=== PATIENT | male | born 1980 | race African-American/Black ===

== ENCOUNTER 2016-11-07 17:30 | Emergency (ER) | payer OTHER ==
[~2016-11-07] VITALS: Ht 175.3 cm; Wt 76.2 kg
[~2016-11-07 17:30] MED LIST: (NONE) 12.5 MG-1 TAB PO; ANTI-GAS 8080 MG PO; FLEXERIL10 MG PO; HYDROMORPHONE HC2 MG PO; LEVSIN 0.1250.125 MG PO; MOTRIN 600 MG600 MG PO; PERCOCET 325 MG1 TA2 PO; PROTONIX 40MG T40 MG PO; SENOKOT S 50 MG1 TAB PO; TRAMADOL50 MG PO; ZOFRAN 4 MG TABL4 MG PO
[2016-11-07 17:39] VITALS: BP 122/84
[2016-11-07] MEDS ORDERED: HYDROCODON-ACE1 EAC2 PO (18:39)
[2016-11-07] MEDS ORDERED: IBUPROFEN600 M1 PO (18:39)
[2016-11-07 18:45] LABS: ABSOLUTE BASOPHIL COUNT 0 /CUMM (0.0-0.2); ABSOLUTE EOSINOPHIL COUNT 0.7 /CUMM (0.0-0.7); ABSOLUTE GRANULOCYTE CT 7.2 /CUMM (1.4-6.5); ABSOLUTE LYMPH COUNT 1.9 /CUMM (1.2-3.4); ABSOLUTE MONOCYTE COUNT 0.4 /CUMM (0.10-0.60); BASOPHIL % 0.3 % (0.0-2.0); EOSINOPHIL % 6.8 % (0-5); GRANULOCYTE % 70.3 % (42.2-75.2); HEMATOCRIT 40.1 % (42-52); MEAN CORPUSCULAR HGB 29.4 PG (27.0-31.0); MEAN CORPUSCULAR HGB CONC 33.6 G/DL (33.0-37.0); MEAN CORPUSCULAR VOLUME 87.6 FL (80.0-94.0); MEAN PLATELET VOLUME 8.9 FL (7.4-10.4); PLATELET COUNT 164 /CUMM (130-400); RBC DISTRIBUTION WIDTH 12.4 % (11.5-14.5); RED BLOOD CELL CT 4.58 /CUMM (4.70-6.10); WHITE BLOOD CELL COUNT 10.3 /CUMM (4.8-10.8)
--- NOTE | 2016-11-07 19:17 | ED THROAT/DENTAL COMPLAINT ---
History of Present Illness General Chief Complaint: Skin Rash/ Abcess Stated Complaint: ?LUMP TO NECK Source: patient Exam Limitations: no limitations Vital Signs & Intake/Output Vital Signs & Intake/Output Vital Signs Date Time Temp Pulse Resp B/P Pulse O2 O2 Flow FiO2 Ox Delivery Rate 11/07 1841 Room Air 11/07 1739 98.3 94 15 122/84 100 Room Air Allergies Coded Allergies: Penicillins (HIVES 05/07/16) metoclopramide (From REGLAN) (HIVES 05/07/16) Reconcile Medications Clindamycin HCl (Cleocin HCl) 300 MG CAPSULE 1 CAP PO TID lymphadenitis Hydrocodone/Acetaminophen (Hydrocodon-Acetaminophen 5-325) 5 MG-325 MG TABLET 1 TAB PO PRN PAIN/INFLAMMATION (Reported) Ibuprofen 600 MG TABLET 1 TAB PO PRN PAIN/INFLAMMATION (Reported) with food Triage Note: PT TO ED FOR R SIDED JAW SWELLING. STATES HE HAD JAW SURGERY APPROX 09/20/16 TO FIX A PLATE FROM A PREVIOUSLY BROKEN JAW. Triage Nurses Notes Reviewed? yes Onset: Abrupt Duration: hour(s):, constant, continues in ED Timing: recent history Injury Environment: home No Modifying Factors: none HPI: 36-year-old male comes into the emergency room with complaints of right-sided neck pain has been going on for the past few hours. Patient denies any fever chills. Patient reports he feels swelling to the right side of his neck and has some pain when he swallows. Patient does report that he has been feeling sick with some ear congestion and nasal congestion over the past week. Denies any other associated symptoms. Nothing seems to make the symptoms better or worse. (ARIELLA SKINNER) Past History Travel History Traveled to [place] past 21 day No Medical History Any Pertinent Medical History? see below for history Neurological: NONE EENT: NONE Cardiovascular: NONE Respiratory: NONE Gastrointestinal: NONE Hepatic: NONE Renal: NONE Musculoskeletal: NONE Psychiatric: NONE Endocrine: NONE History of MRSA: No History of VRE: No History of CDIFF: No Surgical History Surgical History: non-contributory Psychosocial History Who do you live with Patient/Self Services at Home None What is your primary language Kazakh Tobacco Use: Current Daily Use Daily Tobacco Use Amount/Type: => 5 Cigarettes daily ETOH Use: occasional use Illicit Drug Use: marijuana Family History Family History, If Any: No Known Family History. Hx Contributory? No (ARIELLA SKINNER) Review of Systems Review of Systems Constitutional: Reports: no symptoms. EENTM: Reports: see HPI. Respiratory: Reports: no symptoms. Cardiovascular: Reports: no symptoms. GI: Reports: no symptoms. Genitourinary: Reports: no symptoms. Musculoskeletal: Reports: no symptoms. Skin: Reports: no symptoms. Neurological/Psychological: Reports: no symptoms. Hematologic/Endocrine: Reports: no symptoms. Immunologic/Allergic: Reports: see HPI. All Other Systems: Reviewed and Negative (ARIELLA SKINNER) Physical Exam Physical Exam General Appearance: well developed/nourished, no apparent distress, alert, awake Head: atraumatic, normal appearance Eyes: Bilateral: normal appearance, EOMI. Ears: Bilateral: canal normal, Tympanic normal. Nose: normal inspection Mouth/Throat: pharyngeal erythema, no evidence of peritonsillar abscess, no exudates appreciated, Neck: full range of motion, lymphadenopathy (R) Cardiovascular/Respiratory: regular rate/rhythm, no respiratory distress Back: normal inspection Neurologic/Psych: awake, alert, oriented x 3, normal gait, normal mood/affect Skin: intact, normal color Core Measures ACS in differential dx? No Severe Sepsis Present: No Septic Shock Present: No (ARIELLA SKINNER) Progress Differential Diagnosis: aspirated tooth, carious tooth, epiglottitis, Ludwigs angina, meningitis, odontogenic abscess, katya-tonsillar abscess, pharyngeal for. body, stomatitis/gingivitis, strep pharyngitis, tooth fracture, lymphadenitis Plan of Care: Orders Procedure Date/time Status THROAT CULTURE W/QUICK STREP 11/08 1811 Active CBC WITHOUT DIFFERENTIAL 11/08 1811 Complete BASIC METABOLIC PANEL 11/08 1811 Complete Laboratory Tests 11/07/16 1836: Anion Gap 8, Estimated GFR > 60, BUN/Creatinine Ratio 14.0, Glucose 90, Calcium 9.7, CBC w Diff NO MAN DIFF REQ, RBC 4.58 L, MCV 87.6, MCH 29.4, RDW 12.4, MPV 8.9, Gran % 70.3, Lymphocytes % 18.2 L, Monocytes % 4.4, Eosinophils % 6.8 H, Basophils % 0.3, Absolute Granulocytes 7.2 H, Absolute Lymphocytes 1.9, Absolute Monocytes 0.4, Absolute Eosinophils 0.7, Absolute Basophils 0, PUBS MCHC 33.6 Comments: 11/07/2016 7:23:11 PM Patient's symptoms are likely more viral in nature. Due to the unilateral right swelling of right lymph node could be lymphadenitis. Patient covered with oral antibiotics. Patient has no signs of airway obstruction or stridor. No trismus. No signs of peritonsillar abscess. At this time patient does not require any type of CT scan imaging. Patient told to return if any concerns worsening symptoms. Patient is eager to leave. Patient reports she needs to leave soon and asking when everything is going to be back. (BETSY MARTINEZ,ARIELLA) Departure Departure Disposition: HOME OR SELF CARE Condition: Stable Clinical Impression Primary Impression: Lymphadenitis Secondary Impressions: Pharyngitis Referrals: ELISHA HOWARD APRN (PCP) Additional Instructions: Take clindamycin as prescribed. Follow-up with your primary care doctor if not better in 3-4 days. Return if any other concerns worsening symptoms. Please go over all results of today's visit with your primary care doctor. Contact your primary care doctor to let them know you were here in the emergency room. There may be nonspecific findings which may not be related to your visit today here in the emergency room but may require further evaluation and chronic monitoring by your primary care doctor. If you had a laceration today the chance of foreign body always remains. You should follow-up with your primary care doctor for recheck in 3-5 days for a wound check. If you had an x-ray done there is a chance that a fracture could have been missed on initial read and you should follow-up with your primary care doctor for repeat x-rays if symptoms persist. If your blood pressure was elevated here in the emergency room please have rechecked by her primary care doctor within the next 48 hours by your primary care doctor. If you were prescribed a narcotic here in the emergency room or any type of controlled substances you're not allowed to drive while taking this medication or operate any type of heavy machinery. Narcotics can make you feel lightheaded dizziness nausea and can cause constipation. You may need to cotton picker a stool softener. Thank you for choosing [facility] emergency room. Please return to the emergency room immediately if you have any other concerns worsening of symptoms. Departure Forms: Customer Survey General Discharge Information Prescriptions: Current Visit Scripts Clindamycin HCl (Cleocin HCl) 1 CAP PO TID #21 CAP (ARIELLA SKINNER) PA/PUMP ASSEMBLER Co-Sign Statement Statement: ED Attending supervision documentation- [] I saw and evaluated the patient. I have also reviewed all the pertinent lab results and diagnostic results. I agree with the findings and the plan of care as documented in the PA's/PUMP ASSEMBLER's documentation. x I have reviewed the ED Record and agree with the PA's/PUMP ASSEMBLER's documentation. [] Additions or exceptions (if any) to the PAs/PUMP ASSEMBLER's note and plan are summarized below: [] (YOUSUF BOURGEOIS,AIDEN)
[2016-11-07] MEDS ORDERED: CLEOCIN HCL300 M1 PO (19:19)
== END 2016-11-07 19:24 ==
LOC: ERH 17:30
PROVIDERS: Physician Assistant Medical
DX: I88.9 Nonspecific lymphadenitis, unspecified (principal); J02.9 Acute pharyngitis, unspecified; F17.210 Nicotine dependence, cigarettes, uncomplicated
CPT/HCPCS: 96374; J1100; J1885

== ENCOUNTER 2018-03-31 01:53 | Emergency (ER) | payer OTHER ==
[~2018-03-31] VITALS: Ht 175.3 cm; Wt 72.6 kg
[~2018-03-31 01:53] MED LIST changes: +CHLORHEXIDINE473 ML PO; +CLEOCIN HCL300 M1 PO; +HYDROCODON-ACE1 EAC2 PO; +IBUPROFEN600 M1 PO; +IBUPROFEN800 M1 PO; +TYLENOL WITH C1 EACH PO
--- NOTE | 2018-03-31 02:06 | ED DYSPNEA/ASTHMA COMPLAINT ---
History of Present Illness General Chief Complaint: General Adult Stated Complaint: COUGH, CONGESTION, DONT FEEL GOOD PER PT Source: patient, family Exam Limitations: no limitations Vital Signs & Intake/Output Vital Signs & Intake/Output Vital Signs Date Time Temp Pulse Resp B/P B/P Pulse O2 O2 Flow FiO2 Mean Ox Delivery Rate 03/31 0225 Room Air 03/31 0200 98.3 96 20 129/81 96 Room Air Allergies Coded Allergies: Penicillins (HIVES 05/07/16) metoclopramide (From REGLAN) (HIVES 05/07/16) Reconcile Medications Chlorhexidine Gluconate 0.12 % MOUTHWASH 15 ML PO BID GINGIVITIS SWISH AND SPIT FOR 30 SECONDS Clindamycin HCl (Cleocin HCl) 300 MG CAPSULE 1 CAP PO TID ORAL LACERATION Ibuprofen 800 MG TABLET 1 TAB PO TID PRN PAIN Tylenol With Codeine (Tylenol With Codeine #3 Tablet) 300 MG-30 MG TABLET 1 TAB PO BIDP PRN pain Triage Nurses Notes Reviewed? yes HPI: Patient presents with sinus congestion, postnasal drip, productive cough and a headache. The sinus congestion and postnasal drip started 3 days ago with a productive cough started yesterday. Patient states that he's been coughing so much that it is now getting a severe throbbing frontal headache. Patient is concerned because he has a history of an aneurysm. Patient denies any blurry vision. The headache is 10 out of 10 and is constant. There is no radiation. The pain worsened with coughing. Past History Travel History Traveled to [place] past 21 day No Medical History Any Pertinent Medical History? 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 Hx Contributory? No Review of Systems Review of Systems Constitutional: Reports: see HPI, chills. EENTM: Reports: see HPI, nasal congestion. Respiratory: Reports: see HPI, cough. Cardiovascular: Reports: no symptoms. GI: Reports: no symptoms. Genitourinary: Reports: no symptoms. Musculoskeletal: Reports: no symptoms. Skin: Reports: no symptoms. Neurological/Psychological: Reports: see HPI, headache. Hematologic/Endocrine: Reports: no symptoms. Immunologic/Allergic: Reports: no symptoms. All Other Systems: Reviewed and Negative Physical Exam Physical Exam General Appearance: well developed/nourished, alert, awake, anxious, moderate distress Head: atraumatic, normal appearance Eyes: Bilateral: PERRL, EOMI. Ears, Nose, Throat: nasal congestion Neck: normal inspection, supple, full range of motion Respiratory: wheezing, respiratory distress Cardiovascular: regular rate/rhythm, normal peripheral pulses Gastrointestinal: normal bowel sounds, soft, non-tender Extremities: normal inspection, normal capillary refill, normal range of motion, no edema Neurologic/Psych: no motor/sensory deficits, awake, alert, oriented x 3, normal gait, normal mood/affect Skin: intact, normal color, warm/dry Lymphatic: no anterior cervical mitch Core Measures ACS in differential dx? No CVA/TIA Diagnosis No Sepsis Present: No Sepsis Focused Exam Completed? No Progress Differential Diagnosis: pneumonia, SINUSITIS, INTRACEREBRAL HEMORRHAGE Plan of Care: Orders Procedure Date/time Status CT HEAD WO IV CONTRAST 03/31 206 Active XRY-CHEST XRAY, TWO VIEWS 03/31 204 Active Diagnostic Imaging: Viewed by Me: Radiology Read, CT Scan. Discussed w/RAD: Radiology Read, CT Scan. Radiology Impression: PATIENT: TIRSO DAMIAN JR PRESENT AGE: 38 PATIENT ACCOUNT NO: [id number] : 82 LOCATION: [facility] ORDERING PHYSICIAN: Dominick Blue MD SERVICE DATE: 03/31/18 EXAM TYPE: CAT - CT HEAD WO IV CONTRAST EXAMINATION: CT HEAD WITHOUT CONTRAST CLINICAL INFORMATION: Question bleeding, severe headache COMPARISON: 06/15/2017 TECHNIQUE: Contiguous axial imaging was performed from the skull base to vertex without intravenous administration of contrast. DLP: 702.64 mGy-cm FINDINGS: There is no evidence of acute intracranial hemorrhage or territorial infarction. No abnormal mass effect or midline shift is seen. Bennett to white matter differentiation is well preserved. No extra-axial fluid collections are identified. The ventricles are normal in size. There is no abnormal attenuation within the brain parenchyma. The osseous structures and soft tissues are normal. There is partial opacification of the bilateral ethmoid air cells and right maxillary sinus. There is mild mucosal thickening of the frontal and sphenoid sinuses. The mastoid air cells are well-aerated. IMPRESSION: No acute intracranial pathology. Partial opacification of the right maxillary sinus and bilateral ethmoid air cells. DICTATED BY: Rex Howard MD DATE/TIME DICTATED: 03/31/18302 SILK CONDITIONER:BRANDIE DATE/TIME TRANSCRIBED:03/31/18302 CONFIDENTIAL, DO NOT COPY WITHOUT APPROPRIATE AUTHORIZATION. <Electronically signed in Other Vendor System> SIGNED BY: Rex Howard MD 03/31/18309 CXR Impression: PATIENT: TIRSO DAMIAN JR PRESENT AGE: 38 PATIENT ACCOUNT NO: [id number] : 82 LOCATION: [facility] ORDERING PHYSICIAN: Dominick Blue MD SERVICE DATE: 03/31/18 EXAM TYPE: RAD - XRY-CHEST XRAY, TWO VIEWS EXAMINATION: XR CHEST CLINICAL INFORMATION: Productive cough COMPARISON: 05/07/2016 TECHNIQUE: 2 views of the chest were obtained. FINDINGS: Lung volumes are symmetric. No focal consolidation is seen. No evidence of pneumothorax, pleural effusion, or pulmonary edema. The cardiomediastinal contour is unremarkable. No acute osseous findings are seen. IMPRESSION: No acute cardiopulmonary findings. DICTATED BY: Rex Howard MD DATE/TIME DICTATED:03/31/18301 SILK CONDITIONER:MIRAMONTES DATE/TIME TRANSCRIBED:301 CONFIDENTIAL, DO NOT COPY WITHOUT APPROPRIATE AUTHORIZATION. < Electronically signed in Other Vendor System> SIGNED BY: Rex Howard MD 03/31/18306 Initial ED EKG: none Departure Departure Disposition: HOME OR SELF CARE Condition: Stable Clinical Impression Primary Impression: Sinusitis Referrals: Justyn Dhaliwal APRN Additional Instructions: TAKE ANTIBIOTIC PRESCRIBED TAKE COUGH MEDICINE NEEDED. IT HASCODEINEIN IT SO DO NOT DRIVE AFTERTAKING IT USE NASAL SPRAY DIRECTED RRETRN IF SYMPTOMS WORSEN ORFOR ANY CONCERNS Departure Forms: Customer Survey General Discharge Information Prescriptions: Current Visit Scripts Azithromycin (Zithromax) 1 DP PO AD #6 TAB 2 the first day followed by 1 for days 2-5 Fluticasone Propionate (Flonase Allergy Relief) 2 SPRAY JAYDEN DAILY #1 BOT Codeine Phosphate/Guaifenesi (Guaifenesin AC Cough Syrup) 10 ML PO Q6P PRN COUGH #240 ML Critical Care Note Critical Care Note Critical Care Time: non-applicable
--- NOTE | 2018-03-31 03:07 | RADIOLOGY REPORT ---
EXAMINATION: XR CHEST CLINICAL INFORMATION: Productive cough COMPARISON: 05/07/2016 TECHNIQUE: 2 views of the chest were obtained. FINDINGS: Lung volumes are symmetric. No focal consolidation is seen. No evidence of pneumothorax, pleural effusion, or pulmonary edema. The cardiomediastinal contour is unremarkable. No acute osseous findings are seen. IMPRESSION: No acute cardiopulmonary findings.
--- NOTE | 2018-03-31 03:10 | CT SCAN REPORT ---
EXAMINATION: CT HEAD WITHOUT CONTRAST CLINICAL INFORMATION: Question bleeding, severe headache COMPARISON: 06/15/2017 TECHNIQUE: Contiguous axial imaging was performed from the skull base to vertex without intravenous administration of contrast. DLP: 702.64 mGy-cm FINDINGS: There is no evidence of acute intracranial hemorrhage or territorial infarction. No abnormal mass effect or midline shift is seen. Bennett to white matter differentiation is well preserved. No extra-axial fluid collections are identified. The ventricles are normal in size. There is no abnormal attenuation within the brain parenchyma. The osseous structures and soft tissues are normal. There is partial opacification of the bilateral ethmoid air cells and right maxillary sinus. There is mild mucosal thickening of the frontal and sphenoid sinuses. The mastoid air cells are well-aerated. IMPRESSION: No acute intracranial pathology. Partial opacification of the right maxillary sinus and bilateral ethmoid air cells.
[2018-03-31] MEDS ORDERED: FLONASE ALLERG9.9 ML NAS (03:28)
[2018-03-31] MEDS ORDERED: GUAIFENESIN AC473 M2 PO (03:28)
[2018-03-31] MEDS ORDERED: ZITHROMAX250 M2 PO (03:28)
[2018-03-31 03:33] VITALS: BP 113/65
[2018-03-31] MEDS ORDERED: OXYCODONE HCL10 M2 PO (03:41)
[2018-03-31] MEDS ORDERED: LEVAQUIN750 M1 PO (16:11)
[2018-03-31] MEDS ORDERED: PREDNISONE10 M2 PO (16:11)
[2018-03-31] MEDS ORDERED: PROVENTIL HFA6.7 GM INH (16:11)
[2018-03-31] MEDS ORDERED: TESSALON PERLE100 M1 PO (17:17)
== END 2018-03-31 03:34 ==
LOC: ERH 01:53
DX: J32.9 Chronic sinusitis, unspecified (principal); F17.210 Nicotine dependence, cigarettes, uncomplicated
CPT/HCPCS: 71046

== ENCOUNTER 2018-03-31 08:21 | Emergency (ER) | payer OTHER ==
[~2018-03-31 08:21] MED LIST changes: +FLONASE ALLERG9.9 ML NAS; +GUAIFENESIN AC473 M2 PO; +OXYCODONE HCL10 M2 PO; +ZITHROMAX250 M2 PO
--- NOTE | 2018-03-31 09:39 | ED GENERAL ADULT ---
History of Present Illness General Chief Complaint: Upper Respiratory Sx/Fever Stated Complaint: URI, SEEN HERE EARLIER THIS MORNING AND DC'D Source: patient Exam Limitations: no limitations Vital Signs & Intake/Output Vital Signs & Intake/Output Vital Signs Date Time Temp Pulse Resp B/P B/P Pulse O2 O2 Flow FiO2 Mean Ox Delivery Rate 03/31 1157 Room Air 03/31 1051 99.0 74 20 132/72 96 Room Air 03/31 1023 97 03/31 1013 97 03/31 0958 97 03/31 0842 98.4 99 28 133/79 94 Room Air Allergies Coded Allergies: Penicillins (HIVES 05/07/16) metoclopramide (From REGLAN) (HIVES 05/07/16) Triage Note: 38M RETURNS TO ED FROM THIS MORNING AFTER DISCHARGE FOR CONTINUED SOB AND STATES "I JUST CANT BREATHE." GRABBING HIS STOMACH DURING COUGHING FITS STATING IT HURTS W COUGHING. RECEIVED DUONEBS W ONLY SOME IMPROVEMENT. STATES SOB IS WORSE WITH AMBULATION. NOTABLE NASAL CONGESTION OBSERVED. O2 SAT 94%. COUGH SOUNDS LIKE THERE IS BRONCHIAL SPASM AND IS NON-PRODUCTIVE. AFEBRILE Triage Nurses Notes Reviewed? yes Onset: Gradual Duration: day(s): Timing: constant HPI: 38-year-old male with a history of cerebral aneurysm presenting with headache, nasal congestion, sinus pressure, rhinorrhea, nonproductive cough, and myalgias over the past few days. Patient was seen and evaluated in the emergency department early this morning for the same symptoms. He had a CT head that showed sinusitis. Chest x-ray was unremarkable. He was given a DuoNeb with some improvement. Was discharged home with azithromycin, guaifenesin with codeine, and Flonase. Patient return to the emergency department now for persistent shortness of breath. States that the DuoNeb he received earlier in the emergency department initially helped, but only for a brief period of time. Was not given any steroids during his first visit and was not given an albuterol inhaler to go home with. Denies fevers, chest pain, abdominal pain, nausea, vomiting, diarrhea, dysuria. Patient has no underlying lung disease, no asthma or COPD. Is a current smoker, smokes approximately a half pack of cigarettes per day. (Melissa MARTINEZ,Lisa) Reconcile Medications Albuterol Sulfate (Proventil Hfa) 90 MCG HFA.AER.AD 2 PUF INH Q4 PRN SOB Azithromycin (Zithromax) 250 MG TABLET 1 DP PO AD SINUSITIS 2 the first day followed by 1 for days 2-5 Benzonatate (Tessalon Perle) 100 MG CAPSULE 1 CAP PO TID PRN cough Chlorhexidine Gluconate 0.12 % MOUTHWASH 15 ML PO BID GINGIVITIS SWISH AND SPIT FOR 30 SECONDS Clindamycin HCl (Cleocin HCl) 300 MG CAPSULE 1 CAP PO TID ORAL LACERATION Codeine Phosphate/Guaifenesi (Guaifenesin AC Cough Syrup) 10 MG-100 MG/5 ML LIQUID 10 ML PO Q6P PRN COUGH Fluticasone Propionate (Flonase Allergy Relief) 50 MCG/ACTUATION SPRAY.SUSP 2 SPRAY JAYDEN DAILY SINUSITIS Ibuprofen 800 MG TABLET 1 TAB PO TID PRN PAIN Levofloxacin (Levaquin) 750 MG TABLET 1 TAB PO DAILY PNA Oxycodone HCl 10 MG TABLET 1 TAB PO 4XDP PAIN (Reported) Prednisone 10 MG TABLET 6 TAB PO DAILY SOB Tylenol With Codeine (Tylenol With Codeine #3 Tablet) 300 MG-30 MG TABLET 1 TAB PO BIDP PRN pain (Diego Patino DO) Past History Travel History Traveled to [place] past 21 day No Medical History Any Pertinent Medical History? 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 Hx Contributory? No (Lisa Hand) Review of Systems Review of Systems Constitutional: Reports: no symptoms. EENTM: Reports: see HPI. Respiratory: Reports: see HPI. Cardiovascular: Reports: no symptoms. GI: Reports: no symptoms. Genitourinary: Reports: no symptoms. Musculoskeletal: Reports: no symptoms. Skin: Reports: no symptoms. Neurological/Psychological: Reports: see HPI. Hematologic/Endocrine: Reports: no symptoms. Immunologic/Allergic: Reports: no symptoms. All Other Systems: Reviewed and Negative (Lisa Hand) Physical Exam Physical Exam General Appearance: well developed/nourished, no apparent distress, alert, awake Comments: Gen.: Well-nourished, well-developed, no acute distress, nontoxic appearing Head: Normocephalic, atraumatic. Eyes: Normal inspection bilaterally Ears: Normal inspection bilaterally, TMs with good light reflex Nose: Diffuse mucosal edema with clear rhinorrhea, significant tenderness to palpation over maxillary and frontal sinuses Throat: Trace erythema, no exudates, edema, or tonsillar enlargement Neck: Normal inspection, no cervical lymphadenopathy Lungs: Breath sounds diminished with trace end expiratory wheezing Heart: regular rate and rhythm Abdomen: soft and non-tender Extremities: Normal inspection Back: Tenderness to palpation over the right lower lumbar muscles, no midline tenderness to palpation, bilateral lower extremities are neurovascularly intact, patient is able to ambulate with a steady gait Neurologic: alert and oriented x3, steady gait Skin: warm and dry Psychiatric: Normal mood and affect, no apparent delusions or hallucinations, behavior appropriate Core Measures ACS in differential dx? No CVA/TIA Diagnosis: No Sepsis Present: No Sepsis Focused Exam Completed? No (Lisa Hand) Progress Differential Diagnoses I considered the following diagnoses in my evaluation of the patient: [URI versus bronchitis versus pneumonia versus sinusitis versus sinus headache versus reactive airway versus viral syndrome] Plan of Care: Orders Procedure Date/time Status Add-on Test (ER Only) 03/31 1316 Active Add-on Test (ER Only) 03/31 1313 Active EKG 03/31 1313 Active TROPONIN LEVEL 03/31 1145 Complete LIPASE 03/31 1145 Complete LACTIC ACID 03/31 1145 Complete CBC WITHOUT DIFFERENTIAL 03/31 1115 Complete BASIC METABOLIC PANEL 03/31 1115 Complete AEROSOL (GEN) 03/31 1023 Complete AEROSOL (GEN) 03/31 1013 Complete AEROSOL (GEN) 03/31 0958 Complete Current Medications Sig/Levi Start time Last Medication Dose Stop Time Status Admin Potassium Chloride 40 MEQ ONCE ONE 03/31 1300 CAN (K-Dur) 03/31 1301 Laboratory Tests 03/31/18 1145: Anion Gap 11, Estimated GFR > 60, BUN/Creatinine Ratio 10.0, Glucose 130 H, Lactic Acid 2.0, Calcium 9.4, Troponin I < 0.01, Lipase 41, CBC w Diff NO MAN DIFF REQ, RBC 4.61 L, MCV 90.3, MCH 30.1, MCHC 33.4, RDW 13.6, MPV 8.9, Gran % 85.8 H, Lymphocytes % 7.5 L, Monocytes % 2.2, Eosinophils % 4.5, Basophils % 0 , Absolute Granulocytes 9.8 H, Absolute Lymphocytes 0.9 L, Absolute Monocytes 0.3, Absolute Eosinophils 0.5, Absolute Basophils 0 Labs show mild leukocytosis to 11 with a left shift. Also show mild hypokalemia to 3.4, given oral repletion in the emergency department. Otherwise labs were unremarkable. During patient's ER visit he began to complain of worsening chest pain, abdominal pain, and back pain. CTA of the chest, abdomen, and pelvis were obtained to evaluate for aortic dissection versus PE. Results are as follows: VASCULAR: The thoracic aorta appears normal. A three-vessel arch is identified. The visualized great vessels are widely patent. The descending thoracic aorta appears normal. There is no evidence of aortic aneurysm or dissection. The abdominal aorta is unremarkable without aneurysm or dissection. 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 The SMA is widely patent. The ELLA is widely patent. There are 2 renal arteries present bilaterally with small accessory branches on each side. No renal artery stenosis is seen. The aortic bifurcation is patent. Some atherosclerotic calcifications are present in the right common iliac artery without stenosis. The iliac bifurcations are widely patent. The internal iliac arteries appear normal. The external iliac arteries are free of disease. The common femoral arteries appear normal. The femoral bifurcations and proximal profunda femoris arteries and common femoral arteries appear normal. Although not designed for evaluation of the pulmonary arteries, no large central pulmonary emboli are seen. The portal venous system and the hepatic veins are not opacified. The IVC is not adequately opacified. NON-VASCULAR: CHEST: Lungs: Patchy areas of ground-glass infiltration are noted peripherally in the right upper lobe. The remainder of the lungs are clear. Differential diagnosis includes hemorrhage and infection among others. Mediastinum: The mediastinum is normal. The central vascular structures are unremarkable. No hilar or mediastinal lymphadenopathy. Some small preaortic and AP window nodes are present. Pericardium/Pleura: No significant effusion. No pleural mass or thickening. Chest Wall/Axillae: Unremarkable. Multiple small bilateral axillary nodes are seen. ABDOMEN/PELVIS: Peritoneal Space: No significant free air or free fluid identified. Liver, Gallbladder, Biliary Tree: The liver is normal in size, shape, and attenuation. No focal hepatic lesion or biliary ductal dilatation is present. The gallbladder is unremarkable with no evidence of radiopaque gallstones, gallbladder wall thickening, or obvious pericholecystic inflammatory changes. Pancreas: Unremarkable. Spleen: Unremarkable. Adrenal Glands: Unremarkable. Kidneys and Ureters: The kidneys are normal in size, shape, and attenuation. No hydronephrosis, hydroureter, or calculi are seen. No perinephric stranding. Bladder: Unremarkable. Gastrointestinal Tract: Diverticular changes are present in the colon without evidence of diverticulitis. The small and large bowel is otherwise unremarkable. The appendix is not seen with certainty but there is no evidence of appendicitis. Abdominal Wall: No significant hernia is appreciated. Lymph Nodes: No lymphadenopathy. Vascular: The aorta appears normal. The IVC in unremarkable. Pelvic Viscera: Unremarkable. Osseus Structures: Left hip angel luis and screws are present. There is mild scoliosis convex to the right. IMPRESSION: No evidence of aortic dissection. Right upper lobe infiltrates most likely consistent with infectious etiologies or possibly hemorrhage. Incidental note made of celiac stenosis, colonic diverticulosis, left hip angel luis and screws. While awaiting CT scan results patient chose to sign out AGAINST MEDICAL ADVICE. He was signed out by Dr. Patino. Attempted to call patient with the CT scan results, called and left a voicemail at the phone number they left when they signed out. Was unable to reach the patient. I sent prescriptions for Levaquin , albuterol, and prednisone to cover for suspected pneumonia seen on CT scan. Left the emergency department phone number on the patient's voicemail so that he may call with any questions. Initial ED EKG: none (Lisa Hand) Departure Departure Disposition: LEFT AGAINST MEDICAL ADVICE Condition: Stable Clinical Impression Primary Impression: Sinusitis Secondary Impressions: Pneumonia Referrals: Unknown (PCP/Family) Departure Forms: Customer Survey General Discharge Information (Lisa Hand) Departure Prescriptions: Current Visit Scripts Levofloxacin (Levaquin) 1 TAB PO DAILY #7 TAB Albuterol Sulfate (Proventil Hfa) 2 PUF INH Q4 PRN SOB #1 INHAL Prednisone 6 TAB PO DAILY #18 TAB Benzonatate (Tessalon Perle) 1 CAP PO TID PRN cough #30 CAP Comments 03/31/18 2:44 PM The patient refused to wait for the results of the CAT scan and EKG. Risks were explained. He signed out AMA and will return to the emergency department if worse. He was instructed to follow-up with his doctor this week or return to the emergency department . [phone] jerrica PATIENT: TIRSO DAMIAN JR PRESENT AGE: 38 PATIENT ACCOUNT NO: [id number] : 82 LOCATION: [facility] ORDERING PHYSICIAN: Lisa MARTINEZ SERVICE DATE: 03/31/18 EXAM TYPE: CAT - CT ABD & PELVIS ANGIOGRAM; CTA CHEST-PULMONARY EMBOLISM EXAMINATION: CTA CHEST CTA ABDOMEN AND PELVIS WITHOUT AND WITH CONTRAST CLINICAL INFORMATION: Shortness of breath. PE versus PNA. COMPARISON: CT abdomen pelvis 12/18/2013. TECHNIQUE: Multidetector volumetric imaging was performed from the thoracic inlet through the pubic symphysis both before as well as following administration of 95 mL of Optiray 320. Sagittal and coronal reformatted images were obtained on the technologist's workstation. DLP: 472.24 mGy-cm FINDINGS: VASCULAR: The thoracic aorta appears normal. A three-vessel arch is identified. The visualized great vessels are widely patent. The descending thoracic aorta appears normal. There is no evidence of aortic aneurysm or dissection. The abdominal aorta is unremarkable without aneurysm or dissection. 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 The SMA is widely patent. The ELLA is widely patent. There are 2 renal arteries present bilaterally with small accessory branches on each side. No renal artery stenosis is seen. The aortic bifurcation is patent. Some atherosclerotic calcifications are present in the right common iliac artery without stenosis. The iliac bifurcations are widely patent. The internal iliac arteries appear normal. The external iliac arteries are free of disease. The common femoral arteries appear normal. The femoral bifurcations and proximal profunda femoris arteries and common femoral arteries appear normal. Although not designed for evaluation of the pulmonary arteries, no large central pulmonary emboli are seen. The portal venous system and the hepatic veins are not opacified. The IVC is not adequately opacified. NON-VASCULAR: CHEST: Lungs: Patchy areas of ground-glass infiltration are noted peripherally in the right upper lobe. The remainder of the lungs are clear. Differential diagnosis includes hemorrhage and infection among others. Mediastinum: The mediastinum is normal. The central vascular structures are unremarkable. No hilar or mediastinal lymphadenopathy. Some small preaortic and AP window nodes are present. Pericardium/Pleura: No significant effusion. No pleural mass or thickening. Chest Wall/Axillae: Unremarkable. Multiple small bilateral axillary nodes are seen. ABDOMEN/PELVIS: Peritoneal Space: No significant free air or free fluid identified. Liver, Gallbladder, Biliary Tree: The liver is normal in size, shape, and attenuation. No focal hepatic lesion or biliary ductal dilatation is present. The gallbladder is unremarkable with no evidence of radiopaque gallstones, gallbladder wall thickening, or obvious pericholecystic inflammatory changes. Pancreas: Unremarkable. Spleen: Unremarkable. Adrenal Glands: Unremarkable. Kidneys and Ureters: The kidneys are normal in size, shape, and attenuation. No hydronephrosis, hydroureter, or calculi are seen. No perinephric stranding. Bladder: Unremarkable. Gastrointestinal Tract: Diverticular changes are present in the colon without evidence of diverticulitis. The small and large bowel is otherwise unremarkable. The appendix is not seen with certainty but there is no evidence of appendicitis. Abdominal Wall: No significant hernia is appreciated. Lymph Nodes: No lymphadenopathy. Vascular: The aorta appears normal. The IVC in unremarkable. Pelvic Viscera: Unremarkable. Osseus Structures: Left hip angel luis and screws are present. There is mild scoliosis convex to the right. IMPRESSION: No evidence of aortic dissection. Right upper lobe infiltrates most likely consistent with infectious etiologies or possibly hemorrhage. Incidental note made of celiac stenosis, colonic diverticulosis, left hip angel luis and screws. DICTATED BY: Marcelo Dennis MD DATE/TIME DICTATED:03/31/181400 ROUND KILN DRAWER:BRANDIE DATE/TIME TRANSCRIBED:03/31/181400 CONFIDENTIAL, DO NOT COPY WITHOUT APPROPRIATE AUTHORIZATION. <Electronically signed in Other Vendor System> SIGNED BY: Marcelo Dennis MD 03/31/18 1600 (Diego Patino DO) Critical Care Note Critical Care Note Critical Care Time: non-applicable (Lisa Hand)
[2018-03-31 10:51] VITALS: BP 132/72
[2018-03-31 11:51] LABS: ABSOLUTE BASOPHIL COUNT 0 /CUMM (0.0-0.2); ABSOLUTE EOSINOPHIL COUNT 0.5 /CUMM (0.0-0.7); ABSOLUTE GRANULOCYTE CT 9.8 /CUMM (1.4-6.5); ABSOLUTE LYMPH COUNT 0.9 /CUMM (1.2-3.4); ABSOLUTE MONOCYTE COUNT 0.3 /CUMM (0.10-0.60); BASOPHIL % 0 % (0.0-2.0); EOSINOPHIL % 4.5 % (0-5); HEMATOCRIT 41.6 % (42-52); MEAN CORPUSCULAR HGB 30.1 PG (27.0-31.0); MEAN CORPUSCULAR HGB CONC 33.4 G/DL (33.0-37.0); MEAN CORPUSCULAR VOLUME 90.3 FL (80.0-94.0); MEAN PLATELET VOLUME 8.9 FL (7.4-10.4); PLATELET COUNT 168 /CUMM (130-400); RBC DISTRIBUTION WIDTH 13.6 % (11.5-14.5); RED BLOOD CELL CT 4.61 /CUMM (4.70-6.10); WHITE BLOOD CELL COUNT 11.4 /CUMM (4.8-10.8)
[2018-03-31 12:09] LABS: GRANULOCYTE % 85.8 % (42.2-75.2)
--- NOTE | 2018-03-31 16:01 | CT SCAN REPORT ---
EXAMINATION: CTA CHEST CTA ABDOMEN AND PELVIS WITHOUT AND WITH CONTRAST CLINICAL INFORMATION: Shortness of breath. PE versus PNA. COMPARISON: CT abdomen pelvis 12/18/2013. TECHNIQUE: Multidetector volumetric imaging was performed from the thoracic inlet through the pubic symphysis both before as well as following administration of 95 mL of Optiray 320. Sagittal and coronal reformatted images were obtained on the technologist's workstation. DLP: 472.24 mGy-cm FINDINGS: VASCULAR: The thoracic aorta appears normal. A three-vessel arch is identified. The visualized great vessels are widely patent. The descending thoracic aorta appears normal. There is no evidence of aortic aneurysm or dissection. The abdominal aorta is unremarkable without aneurysm or dissection. 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 The SMA is widely patent. The ELLA is widely patent. There are 2 renal arteries present bilaterally with small accessory branches on each side. No renal artery stenosis is seen. The aortic bifurcation is patent. Some atherosclerotic calcifications are present in the right common iliac artery without stenosis. The iliac bifurcations are widely patent. The internal iliac arteries appear normal. The external iliac arteries are free of disease. The common femoral arteries appear normal. The femoral bifurcations and proximal profunda femoris arteries and common femoral arteries appear normal. Although not designed for evaluation of the pulmonary arteries, no large central pulmonary emboli are seen. The portal venous system and the hepatic veins are not opacified. The IVC is not adequately opacified. NON-VASCULAR: CHEST: Lungs: Patchy areas of ground-glass infiltration are noted peripherally in the right upper lobe. The remainder of the lungs are clear. Differential diagnosis includes hemorrhage and infection among others. Mediastinum: The mediastinum is normal. The central vascular structures are unremarkable. No hilar or mediastinal lymphadenopathy. Some small preaortic and AP window nodes are present. Pericardium/Pleura: No significant effusion. No pleural mass or thickening. Chest Wall/Axillae: Unremarkable. Multiple small bilateral axillary nodes are seen. ABDOMEN/PELVIS: Peritoneal Space: No significant free air or free fluid identified. Liver, Gallbladder, Biliary Tree: The liver is normal in size, shape, and attenuation. No focal hepatic lesion or biliary ductal dilatation is present. The gallbladder is unremarkable with no evidence of radiopaque gallstones, gallbladder wall thickening, or obvious pericholecystic inflammatory changes. Pancreas: Unremarkable. Spleen: Unremarkable. Adrenal Glands: Unremarkable. Kidneys and Ureters: The kidneys are normal in size, shape, and attenuation. No hydronephrosis, hydroureter, or calculi are seen. No perinephric stranding. Bladder: Unremarkable. Gastrointestinal Tract: Diverticular changes are present in the colon without evidence of diverticulitis. The small and large bowel is otherwise unremarkable. The appendix is not seen with certainty but there is no evidence of appendicitis. Abdominal Wall: No significant hernia is appreciated. Lymph Nodes: No lymphadenopathy. Vascular: The aorta appears normal. The IVC in unremarkable. Pelvic Viscera: Unremarkable. Osseus Structures: Left hip angel luis and screws are present. There is mild scoliosis convex to the right. IMPRESSION: No evidence of aortic dissection. Right upper lobe infiltrates most likely consistent with infectious etiologies or possibly hemorrhage. Incidental note made of celiac stenosis, colonic diverticulosis, left hip angel luis and screws.
[2018-03-31] MEDS ORDERED: PREDNISONE10 M2 PO (16:11)
[2018-03-31] MEDS ORDERED: PROVENTIL HFA6.7 GM INH (16:11)
[2018-03-31] MEDS ORDERED: LEVAQUIN750 M1 PO (16:11)
[2018-03-31] MEDS ORDERED: TESSALON PERLE100 M1 PO (17:17)
== END 2018-03-31 15:14 | disposition left against medical advice (07) ==
LOC: ERH 08:21
PROVIDERS: Physician Assistant
DX: J18.9 Pneumonia, unspecified organism (principal); J32.9 Chronic sinusitis, unspecified; F17.210 Nicotine dependence, cigarettes, uncomplicated
CPT/HCPCS: 1263; 74174; 96372; 96374; 96375; 96376; J1885; J2405